=== PATIENT | male | born 1965 | race Caucasian/White ===

== ENCOUNTER → 2020-04-02 11:36 | Outpatient (BNVA) | payer SELFPAY | PROVIDERS: Visit Provider Family Medicine | DX: Z13.6 Encounter for screening for cardiovascular disorders (principal); R35.1 Nocturia; R68.89 Other general symptoms and signs; B35.4 Tinea corporis; Z68.26 Body mass index [BMI] 26.0-26.9, adult; F17.229 Nicotine dependence, chewing tobacco, with unspecified nicotine-induced disorders | CPT/HCPCS: 80053; 80061; 84153; 84443; 85025 ==

== ENCOUNTER → 2023-03-07 15:11 | Outpatient (BNVA) | payer SELFPAY | PROVIDERS: PCP Family Medicine; Visit Provider Family Medicine | DX: R35.0 Frequency of micturition (principal) | CPT/HCPCS: 84153 ==

== ENCOUNTER 2023-07-27 23:14 | Emergency (ER) | payer BC, SELFPAY ==
[2023-07-27 23:20] VITALS: BP 152/97; PULSE 62; RESP 17; TEMP 36.4; O2SAT 96
--- NOTE | 2023-07-27 23:57 | ED_ITS ---
HPI - Animal Bite 2 General: Chief Complaint: Animal Bite Stated Complaint: Tick bite inside right knee Time Seen by Provider: 07/27/23 23:47 History of Present Illness: Patient presents to the ER with complaints of tick bite on his right knee with redness swelling and drainage. Patient noted itching to his right knee about noon yesterday and when he got home at 7 PM he pulled the tick off. There is mild area of redness then but he noticed the edge gotten a lot larger today and actually had a velasco on it that he squeezed and got some pus out and started feeling better but then several hours later it increased in size and become painful again. There is no streaking. Review of Systems 2 General: Reports: 10 or more systems reviewed and unremarkable except in HPI and below PFSH ED 2 PFSH: Medical History No pertinent past medical history Surgical History History of appendectomy Family History Other CAD (coronary artery disease) Cancer Diabetes Hypertension Lung disease Stroke Social History Smoking and tobacco/nicotine status: current every day tobacco/nicotine user smokeless tobacco Smokeless tobacco user: chewing tobacco Alcohol intake: current Alcohol type: beer Substance/Drug Use: current Substance/Drug use frequency: Special occassions/opportunity only Physical Exam 2 Const: COMMON NORMALS: no acute distress, average body habitus, patient oriented x3, no limitations, healthy appearing, alert and well nourished HENMT: COMMON NORMALS: normocephalic, atraumatic, hearing grossly normal bilaterally, external ears normal, Normal external nose present, moist oral mucous membranes and oropharynx normal HEAD & SCALP: normocephalic and atraumatic NOSE: Normal external nose present EXTERNAL EAR: Yes external ears normal Neck/C-Spine: COMMON NORMALS: no JVD Chest: COMMONS NORMALS: normal inspection of the chest and normal palpation of entire chest wall Resp: COMMON NORMALS: normal respiratory effort, No retractions, No use of accessory muscles and clear to auscultation bilaterally AUSCULTATION: clear to auscultation bilaterally Cardio: COMMON NORMALS: no JVD, regular rate, regular rhythm, S1 normal heart sound present, S2 normal heart sound present, No gallops present (Cardio), No clicks present (Cardio), No murmurs present (Cardio) and No rub (Cardio) R ATE: regular rate RHYTHM: regular rhythm HEART SOUNDS: S1 normal heart sound present and S2 normal heart sound present GI: COMMON NORMALS: Normal to inspection, nondistended, normoactive bowel sounds present, Soft to palpation, non-tender, No hepatosplenomegaly present and no masses PALPATION: Yes Soft to palpation and Yes No hepatosplenomegaly present Extremity: NARRATIVE EXTREMITY EXAM: Erythematous area approximately 3 cm in size with central wound draining clear fluid tender to touch, no obvious fluctuance no streaking. Neuro: COMMON NORMALS: patient oriented x3 SENSORIUM/ORIENTATION: Yes alert Course 2 Vital Signs: Vital signs: Vital Signs Temperature 97.5 F L 07/27/23 23:20 Pulse Rate 60 07/28/23 00:39 Respiratory Rate 16 07/28/23 00:39 Blood Pressure 136/89 07/28/23 00:39 Pulse Oximetry 98 07/28/23 00:39 Oxygen Delivery Me thod Room Air 07/27/23 23:20 MDM - Animal Bite Medical Decision Making Lab work was obtained which revealed normal white count, tickborne illness panel is pending, patient was given doxycycline 100 mg IV and will be sent home with doxycycline prescription. Differential Diagnosis Likely bite by animal; Unlikely cat bite, dog bite or rabies contact Medical Records I reviewed the patient's medical records. Lab Data I reviewed the patient's lab results. 07/28/23 00:00 07/28/23 00:00 Laboratory Results WBC 7.36 10^3/uL (3.29-11.43) 07/28/23 00:00 RBC 4.89 10^6/uL (3.85-5.65) 07/28/23 00:00 Hgb 15.60 g/dL (11.27-16.99) 07/28/23 00:00 Hct 45.8 % (37-53) 07/28/23 00:00 MCV 93.7 fl (82-101) 07/28/23 00:00 MCH 31.9 pg (27-33) 07/28/23 00:00 MCHC 34.1 g/dL (30-55) 07/28/23 00:00 RDW 13.2 % (12.1-15.1) 07/28/23 00:00 Plt Count 251 10^3/cmm (157-399) 07/28/23 00:00 MPV 10.5 fL (7.4-10.4) H 07/28/23 00:00 Neut % (Auto) 55.2 % 07/28/23 00:00 Lymph % (Auto) 28.7 % 07/28/23 00:00 Louisa % (Auto) 8.8 % 07/28/23 00:00 Eos % (Auto) 6.1 % 07/28/23 00:00 Baso % (Auto) 1.1 % 07/28/23 00:00 Neut # (Auto) 4.06 10^3/uL (1.8-7.7) 07/28/23 00:00 Lymph # (Auto) 2.1 10^3/uL (0.8-4.8) 07/28/23 00:00 Louisa # (Auto) 0.7 10^3/uL (0.2-0.9) 07/28/23 00:00 Eos # (Auto) 0.5 10^3/uL (0.0-0.8) 07/28/23 00:00 Baso # (Auto) 0.1 10^3/uL (0.0-0.1) 07/28/23 00:00 Nucleated RBC % (auto) 0 % 07/28/23 00:00 Nucleated RBCs # 0.0 /100WBC 07/28/23 00:00 Sodium 135 mmol/L (136-145) L 07/28/23 00:00 Potassium 3.6 mmol/L (3.5-5.1) 07/28/23 00:00 Chloride 103 mmol/L (98-107) 07/28/23 00:00 Carbon Dioxide 19 mmol/L (22-29) L 07/28/23 00:00 Anion Gap 16.6 (5-19) 07/28/23 00:00 BUN 12 mg/dL (6-20) 07/28/23 00:00 Creatinine 1.0 mg/dL (0.7-1.2) 07/28/23 00:00 GFR Calculation 77.0 mL/min (90-130) L 07/28/23 00:00 Glucose 107 mg/dL (65-115) 07/28/23 00:00 Calculated Osmolality 280 mOsm/kg (285-295) L 07/28/23 00:00 Calcium 8.7 mg/dL (8.5-10.5) 07/28/23 00:00 Total Bilirubin 0.4 mg/dL (0.15-1.2) 07/28/23 00:00 AST 15 U/L (0-40) 07/28/23 00:00 ALT 22 U/L (0-41) 07/28/23 00:00 Alkaline Phosphatase 51 U/L (40-130) 07/28/23 00:00 C-Reactive Protein 3.0 mg/L (0.0-4.9) 07/28/23 00:00 Total Protein 7.1 g/dL (6.6-8.7) 07/28/23 00:00 Albumin 4.2 g/dL (3.5-5.2) 07/28/23 00:00 Globulin 2.9 g/dL (1.3-4.6) 07/28/23 00:00 No radiology studies performed this visit Discharge Plan Discharge Patient Disposition: Home Clinical Impression: Tick bite Condition: Stable Prescriptions: New doxycycline hyclate 100 mg capsule 100 mg PO BID 10 Days Qty: 20 0RF Discharge Orders: Discharge ED (Routine); Ordered 07/28/23 Ordered By: Jacky Mccauley Referrals: Travis Edmond MD [Primary Care Provider] - 1 week Patient Instructions: Tick Bite (ED) Activity Restrictions/Additional Instructions: Your lab work in the ER was unremarkable, your blood cultures and wound culture is pending and will take approximately 3 days get those results back. Your tick panel is a send out lab and it will take approximately 3 days to get back. You will be called with any positive results. A prescription for doxycycline has been sent to your pharmacy. Please follow-up Coding Level of Care Code ED Salvage Winder for Franco Longo
[2023-07-28 00:14] LABS: Basophils # 0.1 10^3/uL (0.0-0.1); Basophils % 1.1 %; Eosinophils # 0.5 10^3/uL (0.0-0.8); Eosinophils % 6.1 %; Hematocrit 45.8 % (37-53); Lymphocytes # 2.1 10^3/uL (0.8-4.8); Lymphocytes % 28.7 %; Mean Corpuscular HGB Conc 34.1 g/dL (30-55); Mean Corpuscular Hemoglobin 31.9 pg (27-33); Mean Corpuscular Volume 93.7 fl (82-101); Mean Platelet Volume 10.5 fL (7.4-10.4); Monocytes # 0.7 10^3/uL (0.2-0.9); Monocytes % 8.8 %; Neutrophils # 4.06 10^3/uL (1.8-7.7); Neutrophils % 55.2 %; Nucleated Red Blood Cells % 0 %; Platelet Count 251 10^3/cmm (157-399); Red Blood Count 4.89 10^6/uL (3.85-5.65); Red Cell Distribution Width 13.2 % (12.1-15.1); White Blood Count 7.36 10^3/uL (3.29-11.43)
[2023-07-28] MEDS: doxycycline 100 MG in sodium chloride 0.9% (plus) 100 ML IV (00:19)
[2023-07-28 00:39] VITALS: BP 136/89; PULSE 60; RESP 16; O2SAT 98
[2023-07-28 01:00] VITALS: BP 120/78; PULSE 54; RESP 16; O2SAT 97
[2023-07-28 01:17] LABS: Alanine Aminotransferase 22 U/L (0-41); Albumin Level 4.2 g/dL (3.5-5.2); Alkaline Phosphatase 51 U/L (40-130); Anion Gap 16.6 (5-19); Aspartate Amino Transferase 15 U/L (0-40); Blood Urea Nitrogen 12 mg/dL (6-20); Calcium 8.7 mg/dL (8.5-10.5); Carbon Dioxide 19 mmol/L (22-29); Chloride 103 mmol/L (98-107); Creatinine Clr Calc Pharmacy 93.4133; Globulin 2.9 g/dL (1.3-4.6); Glucose 107 mg/dL (65-115); Osmolality Calculated 280 mOsm/kg (285-295); Potassium 3.6 mmol/L (3.5-5.1); Sodium 135 mmol/L (136-145); Total Bilirubin 0.4 mg/dL (0.15-1.2); Total Protein 7.1 g/dL (6.6-8.7)
[2023-08-01 17:56] LABS: Lyme AB Screen <0.90 index
[2023-08-04 17:30] LABS: RMSF IGG NOT DETECTED; RMSF IGM NOT DETECTED
[2023-08-04 20:45] LABS: E. Chaffeensis AB IGG <1:64; E. Chaffeensis AB IGM <1:20
== END 2023-07-28 01:50 | disposition home or self-care (01) ==
PROVIDERS: Emergency Provider Emergency Medicine; PCP Family Medicine
DX: S80.261A Insect bite (nonvenomous), right knee, initial encounter (principal); W57.XXXA Bitten or stung by nonvenomous insect and other nonvenomous arthropods, initial encounter; F17.220 Nicotine dependence, chewing tobacco, uncomplicated
CPT/HCPCS: 80053; 85025; 86140; 86618; 86666; 86757; 87040; 87070; 96365; 99284; J3490